=== PATIENT | male | born 2000 | race Caucasian/White ===

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

== ENCOUNTER 2019-05-05 02:55 | Emergency (ER) | payer MEDICAID, SELFPAY ==
[2019-05-05 02:55] VITALS: BP 135/82; PULSE 96; RESP 18; TEMP 36.6; O2SAT 98; BMI 40.4
--- NOTE | 2019-05-05 03:04 | RAD_ITS ---
STUDY: X-RAY CHEST REASON FOR EXAM: Male, 19 years old. STATES HE STARTED TO HAVE LBP WITH NO INJURY THEN BECAME SOB -- HX OF ASTHMA TECHNIQUE: PA and lateral views of the chest. COMPARISON: 10/23/2018. FINDINGS: The lungs are clear and expanded. There is no demonstrated pleural abnormality. Normal size heart. Normal mediastinum and henrique. Normal visualized pulmonary arteries. Normal visualized aortic arch and descending thoracic aorta. Normal visualized thoracic spine. Normal visualized ribs, clavicles, and shoulders. There is no demonstrated abnormality of the visualized soft tissue structures of the upper abdomen. RAD/Chest PA and Lateral IMPRESSION: Normal x-ray examination of the chest. Electronically Signed: Carrie Regalado MD at 4:04 EST , Service support ,
--- NOTE | 2019-05-05 03:05 | ED.VIS.GEN ---
History of Present Illness Chief Complaint: Back Detail of Chief Complaint: Back pain and shortness of breath Informant: Patient Onset: Yesterday Current Severity: Mild Maximum Severity: Mild Narrative: Patient presents early in the morning for evaluation of back pain followed by shortness of breath. He states he was at work last night around 10 PM when he started getting pain across his lower back. He does report that he stands on his feet a lot and does lifting and twisting. He does not remember specific injury. Pain does not radiate down his legs. He states shortly after he noted the back pain he started to feel slightly short of breath. He has had slight recent congestion with chills. He denies any chest or upper back pain. - Past Medical History (1) Asthma Status: Chronic (2) ADHD Status: Chronic Past Medical History - Allergies and Home Meds Allergies/Adverse Reactions: Allergies No Known Allergies Allergy (Verified 05/05/19 02:59) Primary Care Physician: Markus Grewal DO [Primary Care Provider] - Prior records reviewed: Yes Smoking Status: Never smoker Review of Systems General: Reports: Chills. Denies: Fever Eyes: Denies: Visual changes - bilaterally ENT: Denies: Bilateral ear pain, Rhinorrhea, Sore throat Cardiovascular: Denies: Chest pain, Palpitations Respiratory: Reports: Dyspnea. Denies: Cough, Sputum Gastrointestinal: Denies: Abdominal pain, Nausea, Vomiting, Diarrhea Musculoskeletal: Reports: Back pain. Denies: Extremity Pain Skin: Denies: Rash Neurological: Denies: Headache, Parasthesia Allergy: Denies: Uticaria Physical Exam Vital Signs/Narrative: Vital Signs Temp Pulse Resp BP Pulse Ox 05/05/19 02:55 97.8 F 96 18 135/82 H 98 Inital Vital Signs reviewed: Yes General: Well nourished, Well developed Head: Normocephalic ENT: Moist mucous membranes Cardiovascular: Regular rate, Regular rhythm Respiratory: No distress, CTA bilaterally Abdomen: Soft, Nontender, Nondistended Back: - - Reproducible tenderness in the lumbar region, both midline and paraspinal muscles. Patient moves to the upright position without any difficulty. Extremities: Nontender Skin: Normal color Neurological: Alert, Oriented x3, Normal Strength, Normal Sensation Psychological: Normal affect Diagnostic/Tx/Re-eval Chest X-Ray - ED: 2 View, Read by ED Physician, Normal, Heart, Lungs, Mediastinum - Medical Decision Making Patient was treated with naproxen for pain. 2 view chest x-ray is unremarkable. Patient's O2 sats are normal and he has no chest or upper back pain. Patient's lower back pain is reproducible and I believe this is muscular nature. He will be given a prescription for naproxen. ED Disposition - Plan for ED Patient: Disposition: Home or Assisted Living Diagnosis: Dyspnea, Musculoskeletal back pain Instructions: BACK PAIN (Acute or Chronic) Prescriptions: Naproxen [Naprosyn] 500 mg PO BID PRN PRN #20 tab PRN Reason: Pain Score 4-10/10 Transmission Status: Pending to [facility] Referrals: Markus Grewal DO [Primary Care Provider] - 1 Week if not improving
[2019-05-05] MEDS: Naproxen 500 MG Tablet PO (03:07)
[2019-05-05 03:27] VITALS: BP 120/82; PULSE 69; RESP 18; O2SAT 96
== END 2019-05-05 03:28 | disposition home or self-care (01) ==
PROVIDERS: Emergency Provider Emergency Medicine; PCP Family Medicine
DX: M54.5 Low back pain (principal); R06.00 Dyspnea, unspecified; J45.909 Unspecified asthma, uncomplicated; F90.9 Attention-deficit hyperactivity disorder, unspecified type
CPT/HCPCS: 71046; 99283

== ENCOUNTER 2021-12-24 08:53 | Emergency (ER) | payer MEDICAID, SELFPAY ==
[2021-12-24 08:54] VITALS: BP 128/89; PULSE 85; RESP 14; TEMP 36.6; O2SAT 97; BMI 40.6
--- NOTE | 2021-12-24 09:14 | ED.VIS.GI ---
HPI HPI - GI History of Present Illness Chief Complaint: Abd Pain Narrative Narrative: 21-year-old male presenting with right lower quadrant pain. He states that sharp in nature. At times it is very severe and is a 10. Currently is a 7. He has had the pain in the right lower quadrant all week. Patient states that he had diarrhea about a week ago which persisted until yesterday and now he feels constipated. Patient has not had a fever, but does state he has had chills. He does not have any urinary complaints. He has no history of kidney stones. He does states he has some baseline nausea which is worse with the pain episodes. He states he is able to eat but after he eats he does not feel so well. He has not vomited he states that he was seen at urgent care on and they told him to follow-up with his PCP. They tested him for nothing and he received no medications from them. Patient was told that if his pain persists or is worse he should come to the emergency room. PFSH PFSH Medical History no medical history Home Medications naproxen 500 mg tablet 500 mg PO BID PRN PRN Pain Score 4-10/10 #20 tabs 05/05/19 [Rx Last Taken Unknown] paroxetine HCl 20 mg tablet 20 mg PO DAILY 05/05/19 [History Last Taken Unknown] naproxen 500 mg tablet (Naprosyn) 500 mg PO BID PRN pain #20 tabs 12/24/21 [Rx Last Taken Unknown] ondansetron 4 mg disintegrating tablet 4 mg PO Q8H PRN nausea and vomiting #10 tabs 12/24/21 [Rx Last Taken Unknown] Allergy/AdvReac Type Severity Reaction Status Date / Time No Known Allergies Allergy Verified 12/24/21 08:58 Social History Smoking Status: Never smoker ROS ROS ED Constitutional Constitutional ED: Reports chills; Denies fever(s) ENT ENT ED: Denies rhinorrhea or sore throat Cardiovascular Cardiovascular: Denies chest pain or palpitations Respiratory/Chest Respiratory/Chest: Denies cough or dyspnea Gastrointestinal Gastrointestinal: Reports abdominal pain and nausea Genitourinary Genitourinary ED: Denies dysuria or hematuria Musculoskeletal Musculoskeletal: Denies arthralgias or back pain Integumentary Denies abscess Neurologic Neurologic: Denies headache(s) or paresthesias Psychiatric Psychiatric: Denies anxiety or depression Endocrine Endocrinology: Denies polydipsia or polyphagia EXAM Physical Exam Const Vital Signs: 12/24/21 08:54 12/24/21 11:22 Temperature 97.8 F Temperature Source Temporal Pulse Rate 85 72 Respiratory Rate 14 16 Blood Pressure 128/89 H 118/92 H Blood Pressure Mean 102 100 Pulse Ox 97 98 Oxygen Delivery Method Room Air Room Air Positive well nourished General Appearance ED: NAD; Negative for pallor HEENT Reports moist mucous membranes normocephalic and atraumatic Eyes PERRL and EOMs intact bilaterally Resp normal respiratory effort and clear to auscultation bilaterally Auscultation: Negative for rales, rhonchi or wheezes Cardio regular rate and regular rhythm GI Palpation: tender RLQ Back/Spine no CVA tenderness Neuro CN's II-XII intact bilaterally Sensorium / Orientation: alert Motor Exam: strength 5/5 throughout Psych mental status grossly normal and thought process normal Skin no wounds General Skin Exam: Negative for jaundice or pallor MDM MDM MDM Narrative Medical decision making narrative: Patient presenting with right lower quadrant pain. He was given Toradol and Zofran and improved his pain significantly. He states that his pain has been ongoing for about a week. He has had some intermittent nausea with this as well. His CBC and CMP are within normal limits. Urinalysis negative for infection but does show a small amount of occult blood. There was a slight delay in care because the patient could not urinate for at least [address] scan of the abdomen pelvis without contrast shows gastroenteritis versus mesenteric adenitis but does not show any appendicitis. Unfortunately the appendix is not visualized on this study, however the patient has had this pain for a week and he has normal lab work I have a low suspicion that this is appendicitis. I did addictions counselor assistant the patient if his pain should worsen or he develop worsening symptoms otherwise he should return to the ER. Otherwise I gave prescription for Naprosyn and Zofran for home. Impression: 1. Mesenteric adenitis 2. Nausea Lab Data Attestation: I reviewed the patient's lab results. Labs: Laboratory Results - last 24 hr 12/24/21 12/24/21 12/24/21 09:20 09:20 12:05 WBC 9.1 RBC 5.36 Hgb 15.0 Hct 45.8 MCV 85.4 MCH 28.0 MCHC 32.8 RDW Std Deviation 39.4 RDW Coeff of Willie 12.7 Plt Count 244 MPV 11.2 Immature Gran % (Auto) 0.200 Neut % (Auto) 67.8 Lymph % (Auto) 21.0 Kings % (Auto) 7.1 Eos % (Auto) 3.4 Baso % (Auto) 0.5 Absolute Neuts (auto) 6.2 Absolute Lymphs (auto) 1.91 Nucleated RBC % 0 Sodium 140 Potassium 4.1 Chloride 108 H Carbon Dioxide 26.0 Anion Gap 6 BUN 17 Creatinine 0.95 Estim Creat Clear Calc 133.87 Est GFR (MDRD) Af Amer 127 Est GFR (MDRD) Non-Af 105 BUN/Creatinine Ratio 17.9 Glucose 96 Calcium 9.2 Total Bilirubin 0.50 AST 27 ALT 57 Alkaline Phosphatase 82 Total Protein 7.6 Albumin 4.0 Globulin 3.6 Albumin/Globulin Ratio 1.1 Urine Color Yellow Urine Clarity Sl. Cloudy Urine pH 6.0 Ur Specific [place] 1.020 Urine Protein 30 H Urine Glucose (UA) Normal Urine Ketones Negative Urine Occult Blood 10 H Urine Nitrite Negative Urine Bilirubin Negative Urine Urobilinogen Normal Ur Leukocyte Esterase 25 H Urine RBC 0 SEEN Urine WBC 0-5 SEEN Ur Squamous Epith Cells 0-5 SEEN Urine Bacteria 0 SEEN Urine Mucus 0 SEEN Radiography Diagnostic Testing: Clinical Impression(s) from Imaging Studies Abdomen/Pelvis CT 12/24/21 12:17 IMPRESSION: 1. No renal or ureteral stone. 2. Suspect gastroenteritis or mesenteric adenitis. The appendix is not visualized. 3. Fatty infiltration liver. Electronically Signed: Babatunde Dowd MD at 13:09 EDT , Discharge Plan Triage Chief Complaint: Abd Pain ED Provider: Hossein Hartman Dx/Rx/DC Orders Instructions: ED Adenitis, Mesenteric Prescriptions: New naproxen [Naprosyn] 500 mg tablet 500 mg PO BID PRN (Reason: pain) Qty: 20 0RF ondansetron 4 mg tablet,disintegrating 4 mg PO Q8H PRN (Reason: nausea and vomiting) Qty: 10 0RF No Action paroxetine HCl 20 MG tablet 20 mg PO DAILY Label Comments: take 1 tablet by mouth once daily naproxen 500 MG tablet 500 mg PO BID PRN PRN (Reason: Pain Score 4-10/10) Qty: 20 0RF Primary Care Provider: Markus Grewal Referrals: Markus Grewal DO [Primary Care Provider] - Disposition Disposition: Home, Self Care
[2021-12-24 09:31] LABS: Absolute Lymphocyte Count 1.91 X10^3/uL (0.83-4.51); Absolute Neutrophil Count 6.2 X10^3/uL (2.0-7.7); Basophil# 0.05 X10^3/uL; Basophil% 0.5 % (0-1); Eosinophil# 0.31 X10^3/uL; Eosinophils% 3.4 % (0-5); Hematocrit 45.8 % (40-54); Lymphocyte # 1.91 X10^3/ul (0.83-4.51); Mean Corp Hgb Conc 32.8 g/dL (32-36); Mean Corpuscular Volume 85.4 fL (80-94); Mean Platelet Vol. 11.2 fl (6.2-12.0); Monocyte# 0.65 X10^3/uL; Monocyte% 7.1 % (0-10); NRBC Flagged by Analyzer 0 % (0-5); Neutrophil # 6.16 X10^3/uL (2.7-7.7); Neutrophil % 67.8 % (47-70); Platelet Count 244 K/mm3 (150-450); RBC Distribution Width CV 12.7 % (11.6-14.6); RBC Distribution Width SD 39.4 fl (35.1-43.9); Red Blood Count 5.36 M/mm3 (4.6-6.2); White Blood Count 9.1 K/mm3 (4.4-11.0)
[2021-12-24] MEDS: 0.9% Normal Saline 1,000 ML 1000 ML IV (09:35)
[2021-12-24] MEDS: Ondansetron 4 MG/2 ML Vial IV (09:35)
[2021-12-24] MEDS: Ketorolac 15 MG/ML Vial IV (09:35)
[2021-12-24 09:44] LABS: ALB/GLOB Ratio 1.1 RATIO (0.9-2.4); AST(SGOT) 27 U/L (15-37); Alanine Aminotransfer ALT/SGPT 57 U/L (16-61); Alkaline Phosphatase 82 U/L (45-117); Anion Gap 6 (5-15); BUN 17 mg/dL (7-18); BUN/Creat Ratio 17.9 RATIO (10-20); Calcium,Total 9.2 mg/dL (8.5-10.1); Chloride 108 mmol/L (98-107); Creatinine, Serum 0.95 mg/dL (0.70-1.30); EST Glomerular Filtration Rate 105 mL/min (>60); Est Glom Filt Rate - Afr Amer 127 mL/min (>60); Estimated Creatinine Clearance 133.87 ml/min; Globulin 3.6 g/dL (2.2-4.2); Glucose 96 mg/dL (74-106); Potassium 4.1 mmol/L (3.5-5.1); Protein, Total 7.6 g/dL (6.4-8.2); Sodium Level 140 mmol/L (136-145)
[2021-12-24 11:22] VITALS: BP 118/92; PULSE 72; RESP 16; O2SAT 98
[2021-12-24 12:12] LABS: Bacteria 0 SEEN /hpf (None Seen); Mucous, Urine 0 SEEN /hpf (<or=2+); Red Blood Cells-Urine 0 SEEN /hpf (0-5)
[2021-12-24 12:13] LABS: Color, Urine Yellow (Yellow); Glucose, Dipstick Normal (Normal); Ketone-Dipstick Negative (Negative); Leukocyte Esterase-Dipstick 25 /ul (Negative); Nitrite-Dipstick Negative (Negative); Occult Blood-Urine 10 /ul (Negative); Protein-Dipstick 30 mg/dl (Negative); Urine Bilirubin Dipstick Negative (Negative); Urine Clarity Sl. Cloudy (Clear); Urine Urobilinogen Normal (Normal)
--- NOTE | 2021-12-24 12:17 | CT_ITS ---
STUDY: CT ABDOMEN AND PELVIS WITHOUT CONTRAST REASON FOR EXAM: Male, 21 years old. kidney stone RADIATION DOSAGE (If Supplied By Facility): CTDIvol = ( 23.71 ) mGy, DLP = ( 1374.17 ) mGycm TECHNIQUE: Transaxial images were obtained from the dome of the diaphragm to the symphysis pubis without oral contrast, and without intravenous contrast. Sagittal and coronal images were reconstructed. Individualized dose optimization techniques were used for this CT. COMPARISON: None. FINDINGS: The visualized lung bases are unremarkable. The visualized portions of the heart are within normal limits. There is decreased attenuation of the liver consistent with steatosis. Normal gallbladder and extrahepatic biliary system. Normal spleen. Normal pancreas. Normal bilateral adrenal glands. Normal right kidney. Normal left kidney. Normal visualized stomach. Normal small intestine. Several small lymph nodes within the small bowel mesentery in the left upper quadrant consistent with gastroenteritis or mesenteric adenitis. Normal colon. There is non-visualization of the appendix. Normal abdominal aorta. Normal inferior vena cava. Normal retroperitoneum. Normal urinary bladder. Normal abdominal wall. Mild levoscoliosis of the lumbar spine. 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 No anterolisthesis of L5 on S1 to suggest spondylolisthesis. CT/Abdomen/Pelvis without Cont IMPRESSION: 1. No renal or ureteral stone. 2. Suspect gastroenteritis or mesenteric adenitis. The appendix is not visualized. 3. Fatty infiltration liver. Electronically Signed: Babatunde Dowd MD at 13:09 EDT ,
[2021-12-24 12:26] LABS: Squamous Epithelial Cells - UA 0-5 SEEN /hpf (0-5); White Blood Cells 0-5 SEEN /hpf (0-5)
[2021-12-24 13:00] VITALS: RESP 18
== END 2021-12-24 14:12 | disposition home or self-care (01) ==
PROVIDERS: Emergency Provider Student in an Organized Health Care Education/Training Program; PCP Family Medicine; Visit Provider Student in an Organized Health Care Education/Training Program
DX: I88.0 Nonspecific mesenteric lymphadenitis (principal); R11.0 Nausea; R10.31 Right lower quadrant pain; Z20.822 Contact with and (suspected) exposure to COVID-19
CPT/HCPCS: 74176; 80053; 81001; 85025; 87811; 96361; 96374; 96375; 99282; J7030; A4216; J2405

== ENCOUNTER 2022-07-14 07:30 | Emergency (ER) | payer MEDICAID, SELFPAY ==
[2022-07-14 07:31] VITALS: BP 154/98; PULSE 86; RESP 16; TEMP 36.2; O2SAT 97; BMI 43.3
--- NOTE | 2022-07-14 07:46 | ED.VIS.DENTA ---
HPI History of Present Illness Chief Complaint: Dental Informant: patient Onset/Context/Timing Onset: Month(s) Narrative Narrative: Intermittent right lower dental pain for the past 3 months. Saw his dentist had a filling placed. However feels similar when he needed a root canal on the left side. Talk to his dentist a week ago could not get in therefore prescribed amoxicillin and Tylenol 3. He finished amoxicillin 3 days ago pain persistent now for the last day and a half. No fevers. Having chills. No trouble swallowing. His dentist is available on and Fridays. Prior similar symptoms: Yes PFSH PFSH Home Medications naproxen 500 mg tablet 500 mg PO BID PRN PRN Pain Score 4-10/10 #20 tabs 05/05/19 [Rx Last Taken Unknown] paroxetine HCl 20 mg tablet 20 mg PO DAILY 05/05/19 [History Last Taken Unknown] naproxen 500 mg tablet (Naprosyn) 500 mg PO BID PRN pain #20 tabs 12/24/21 [Rx Last Taken Unknown] ondansetron 4 mg disintegrating tablet 4 mg PO Q8H PRN nausea and vomiting #10 tabs 12/24/21 [Rx Last Taken Unknown] ibuprofen 600 mg tablet 600 mg PO Q6H PRN PRN pain #20 TABLETS 07/14/22 [Rx Last Taken Unknown] penicillin V potassium 250 mg tablet 500 mg PO 4X/DAY #40 tabs 07/14/22 [Rx Last Taken Unknown] Allergy/AdvReac Type Severity Reaction Status Date / Time No Known Allergies Allergy Verified 07/14/22 07:33 Social History Smoking Status: Never smoker ROS ROS ED Constitutional Constitutional ED: Denies chills, fever(s) or sweats Eyes Eyes: Denies change in vision ENT ENT ED: Reports other Details: Dental pain ; Denies dysphagia or sore throat Cardiovascular Cardiovascular: Denies chest pain, leg edema, palpitations or racing heartbeat Respiratory/Chest Respiratory/Chest: Denies cough, dyspnea or dyspnea on exertion Gastrointestinal Gastrointestinal: Denies abdominal pain, diarrhea, nausea or vomiting Genitourinary Genitourinary ED: Denies dysuria, hematuria or urinary frequency Musculoskeletal Musculoskeletal: Denies back pain, extremity pain or neck pain Integumentary Denies rash or wounds Neurologic Neurologic: Denies headache(s), paresthesias or weakness EXAM Physical Exam Const Vital Signs: 07/14/22 07:31 Temperature 97.2 F L Temperature Source Temporal Pulse Rate 86 Respiratory Rate 16 Blood Pressure 154/98 H Blood Pressure Mean 116 Pulse Ox 97 Oxygen Delivery Method Room Air Positive well nourished and well developed General Appearance ED: well developed and NAD HEENT Reports moist mucous membranes HEENT Narrative: Dental fillings on tooth 31, there is no focal abscess in the gums or sublingual edema. No fluctuance. No tenderness to percussion. Airway patent. normocephalic and atraumatic Eyes PERRL, EOMs intact bilaterally and conjunctivae normal General Eye ED: Yes normal appearance of both eyes Neck no lymphadenopathy and supple General: Negative for tenderness Chest Wall Chest: Negative for tenderness Resp normal respiratory effort and normal air movement Effort and Inspection: symmetric chest movement; Negative for respiratory distress Cardio regular rate, regular rhythm and no murmurs Peripheral Pulses: pulses 2+ throughout GI normal to inspection, nondistended, normoactive bowel sounds and non-tender Palpation: Negative for guarding or rebound tenderness present Back/Spine no CVA tenderness and no thoracic nor lumbar tenderness Extremity normal to inspection General Extremety ED: Negative for edema or tenderness General Extremity: Negative for edema Neuro oriented x3 and no sensory deficits noted Sensorium / Orientation: awake and alert Skin no rashes or lesions noted and no wounds MDM MDM MDM Narrative Medical decision making narrative: Interventions / MDM: Differential diagnosis: Dentalgia, dental carry Diagnosis considered but do not suspect: No clinical dental abscess, no clinical Bigg's angina My EKG interpretation: N/A Imaging independently reviewed and interpreted by myself: N/A External documents reviewed: N/A Test considered but not ordered:N/A ED course: Patient with dentalgia, penicillin ibuprofen started. He will follow-up with his dentist for definitive treatment. All questions were answered. Re-evaluation: stable Disposition discussed with patient/family/significant other: Patient Case discussed with consulting clinician: N/A Discharge Plan Triage Chief Complaint: Dental ED Provider: Durga Willingham Dx/Rx/DC Orders Clinical Impression: Dentalgia Instructions: ED Dental Pain Prescriptions: New ibuprofen 600 mg tablet 600 mg PO Q6H PRN PRN (Reason: pain) Qty: 20 0RF penicillin V potassium 250 mg tablet 500 mg PO 4X/DAY Qty: 40 0RF No Action paroxetine HCl 20 MG tablet 20 mg PO DAILY Label Comments: take 1 tablet by mouth once daily naproxen 500 MG tablet 500 mg PO BID PRN PRN (Reason: Pain Score 4-10/10) Qty: 20 0RF naproxen [Naprosyn] 500 mg tablet 500 mg PO BID PRN (Reason: pain) Qty: 20 0RF ondansetron 4 mg tablet,disintegrating 4 mg PO Q8H PRN (Reason: nausea and vomiting) Qty: 10 0RF Primary Care Provider: Care Physician,No Primary Activity Restrictions/Additional Instructions: Follow-up with your dentist for definitive treatment. Take antibiotic as prescribed. Disposition Disposition: Home, Self Care
[2022-07-14] MEDS: Ibuprofen 600 MG Tablet PO (07:49)
[2022-07-14] MEDS: Penicillin Vk 250 MG Tablet 500 MG PO (07:50)
== END 2022-07-14 07:53 | disposition home or self-care (01) ==
LOC: ED 07:46
PROVIDERS: Emergency Provider Emergency Medicine; Visit Provider Emergency Medicine
DX: K08.89 Other specified disorders of teeth and supporting structures (principal); R68.83 Chills (without fever)
CPT/HCPCS: 99283

== ENCOUNTER 2024-12-26 12:28 | Emergency (ER) | payer MEDICAID, SELFPAY ==
[2024-12-26 12:30] VITALS: BP 129/94; PULSE 67; RESP 18; TEMP 35.9; O2SAT 99; BMI 41.6
--- OUTSIDE RECORDS SUMMARY | 2024-12-26 12:46 | XMS RPT_ITS | CCD ---
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 childhood series) Varicella (1 of 2 - 2-dose childhood series) [facility] Start: 1999 COVID-19 (#1) COVID-19 (#1) [facility] Start: 1999 COVID-19 VACCINE (#1) COVID-19 VACCINE (#1) [facility] Start: 1999 HEPATITIS B (1 of 3 - 3-dose series) HEPATITIS B (1 of 3 - 3-dose series) [facility] Genetic Sendout: 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 Lab Routine Genetic testing 11/28/2022 4:35 PM EDT [facility] Work Phone: Patient Education [facility] Work Phone: Patient referral [facility] Work Phone: Immunizations Immunization Date Immunization Notes Care Provider Wendy gordon 02-18-2020 influenza virus vacc ine, unspecified formulation Courtney Graham APRN.CNP Work Phone: [facility] Payers Date Payer Category Payer Self-pay [id number] 2022 Unknown [id number] 2019 Medicaid [id number] Unknown [id number] Unknown [id number] Unknown [id number] Social History Date Type Detail Facility Start: 12-24-2021 End: 07-14-2022 Tobacco smoking status PRIS Unknown if ever smoked [facility] Start: 05-05-2019 Non-smoker [facility] Start: 1999 Sex Assigned At Male [facility] Start: 12-22-2021 End: 07-14-2022 Tobacco smoking status PRIS Never smoked tobacco [facility] Start: 12-22-2021 Tobacco use and exposure Smokeless tobacco non-user [facility] Start: 12-22-2021 End: 03-27-2024 Alcohol intake Lifetime non-drinker (finding) [facility] Start: 2000 Sex Assigned At Not on file [facility] Start: 12-12-2021 End: 12-22-2021 Exposure to SARS-CoV-2 (event) Not sure [facility] Work Phone: Start: 03-17-2020 End: 03-27-2024 Gender identity Not on file [facility] Start: 03-17-2020 End: 03-27-2024 History of Social function [facility] National Score (1-100), lower number is lower risk Not on file [facility] Clinical Notes 12-22-2021 to 10-08-2024 Note Date & Type Note Facility 10-08-2024 Progress note [facility] 10-08-2024 Progress note Note Date/Time October 08, 2024 11:39am [facility] [address], [address] [place], [place] [address] OFFICE VISIT Date of Service: 10/08/24 MR#: [id number] Acct: [id number] Name: BHAVYA MOORE Rep #: [id number] : 2000 Provider: ASHLY Mari Age/Sex: 24/M Location: [facility] Status: Signed Intake Vital Signs 07/14/22 07:31 Height 6 ft Intake Visit Reasons: PE NON DOT PHYSICAL/ YANET BRUSH Allergies No Known Allergies Allergy (Verified 07/14/22 07:33) PFSH Social History Smoking Status: Never smoker HPI HPI Details: BHAVYA MOORE, is a 24 M who presents to the office today for preemployment physical. Please see corresponding scanned documents with today's date. Office Procedures Physical Exam Coding PE Coding Pre-employment PE: Yes Coding Level of Care Code Attention Emergency Care Attendant Diagnoses Encounter for pre-employment health screening examination Z02.1 Assessment and Plan Assessment and Plan (1) Encounter for pre-employment health screening examination: Status: Acute 10/08/24 1139 <Electronically signed by Sumit LIMON> Date _ Sumit LIMON Cosigner Signature: Date (if applicable) CC: ~ [employer] Work Phone: [phone]) 976-286212-20-2024 NoteHNO ID: [id number] Author: COURTNEY GRAHAM APRN.CLINICAL RESEARCH SPECIALIST Service: ? Author Type: Nurse Practitioner Type: Progress Notes Filed: 03/27/2024 11:44 Note Text: CC: Patient presents with: Sore Throat: X 1 day All kids are + HPI: Bhavya Moore is a 23 year old male who presents to the office with complaint of sore throat since last night. Symptoms are staying the same. Associated symptoms includes sore throat. Denies cough, teeth ache, wheezing, dyspnea, nausea, vomiting , and diarrhea. Treatments tried include nothing so far. with no relief of symptoms. Sick contacts: yes. History of asthma, frequent episodes of bronchitis, chronic bronchitis, bronchiectasis or COPD: No Smoker: No Seasonal/environmental allergies: No The ROS is otherwise negative. The patient's pmh, medications, allergies, and past visits are reviewed. PHYSICAL EXAM: BP 121/80 Pulse (!) 59 Temp 36.4 ?C (97.6 ?F) Resp 22 Wt (!) 149 kg (328 lb 7.8 oz) SpO2 97% General appearance: alert, cooperative, pleasant, in no acute distress Head: Normocephalic Eyes: EOM's intact, conjunctiva pink and moist, no icterus, sclera white, non-injected Ears: Right ear: External ear/canal- Normal, TM - clear with good landmarks. Left ear: External ear/canal- Normal, TM - clear with good landmarks Oropharynx:moderate erythema, without exudates present Heart: Negative. RRR without obvious murmur, gallop, or rubs. No ectopy. Lungs: clear to auscultation, without rales or wheeze, good air exchange PAST MEDICAL HISTORY Diagnosis Date Anxiety PAST SURGICAL HISTORY Procedure Laterality Date PAST SURGICAL HISTORY OF 1999 ?pyloric stenosis procedure ALLERGIES Patient has no known allergies. MEDICATIONS No prescriptions on file. No family history on file. Social History Tobacco Use Smoking status: Never Smokeless tobacco: Never Vaping Use Vaping status: Never Used Substance Use Topics Alcohol use: Never Drug use: Never ASSESSMENT/PLAN: 1. Sore throat - ICD9: 462, ICD10: J02.9 - STREP A MOLECULAR (POC) - neg Otc meds for viral symptoms. Potential red flag symptoms discussed with the patient. Reviewed appropriate action plan to take if red flag symptoms occur. Patient agreeable to treatment plan. Courtney Graham APRN.[facility]12-20-2024 History of Present illness Narrative* Courtney Graham APRN.[facility] - 03/27/2024 11:43 AM EST CC: Patient presents with: Sore Throat: X 1 day All kids are + HPI: Bhavya Moore is a 23 year old male who presents to the office with complaint of sore throat since last night. Symptoms are staying the same. Associated symptoms includes sore throat. Denies cough, teeth ache, wheezing, dyspnea, nausea, vomiting , and diarrhea. Treatments tried include nothing so far. with no relief of symptoms. Sick contacts: yes. History of asthma, frequent episodes of bronchitis, chronic bronchitis, bronchiectasis or COPD: No Smoker: No Seasonal/environmental allergies: No The ROS is otherwise negative. The patient's pmh, medications, allergies, and past visits are reviewed. PHYSICAL EXAM: BP 121/80 Pulse (!) 59 Temp 36.4 C (97.6 F) Resp 22 Wt (!) 149 kg (328 lb 7.8 oz) SpO2 97% General appearance: alert, cooperative, pleasant, in no acute distress Head: Normocephalic Eyes: EOM's intact, conjunctiva pink and moist, no icterus, sclera white, non-injected Ears: Right ear: External ear/canal- Normal, TM - clear with good landmarks. Left ear: External ear/canal- Normal, TM - clear with good landmarks Oropharynx:moderate erythema, without exudates present Heart: Negative. RRR without obvious murmur, gallop, or rubs. No ectopy. Lungs: clear to auscultation, without rales or wheeze, good air exchange PAST MEDICAL HISTORY Diagnosis Date Anxiety PAST SURGICAL HISTORY Procedure Laterality Date PAST SURGICAL HISTORY OF 1999 ?pyloric stenosis procedure ALLERGIES Patient has no known allergies. MEDICATIONS No prescriptions on file. No family history on file. Social History Tobacco Use Smoking status: Never Smokeless tobacco: Never Vaping Use Vaping status: Never Used Substance Use Topics Alcohol use: Never Drug use: Never ASSESSMENT/PLAN: 1. Sore throat - ICD9: 462, ICD10: J02.9 - STREP A MOLECULAR (POC) - neg Otc meds for viral symptoms. Potential red flag symptoms discussed with the patient. Reviewed appropriate action plan to take if red flag symptoms occur. Patient agreeable to treatment plan. Courtney Graham APRN.POP [facility] History of Present illness Narrative* Isauro Gale APRN.POP - 12/22/2021 9:05 AM EDT Subjective HPI Nontoxic-appearing male presents urgent care chief complaint transient abdominal pain. Duration of symptoms a month and a half. Associated symptoms transient abdominal pain. States this morning he has had more right lower quadrant abdominal pain. Rates it 7 out of 10. This is associated with diarrhea. No bloody diarrhea. Approximately 5-6 loose stools today. No known sick contacts. Denies any OTCmedication use today. Has been using Tylenol the past this has helped. Denies any fever body aches chills productive cough chest pain shortness of breath or change in urinary habits. Past medical history prescription medication use allergies reviewed. 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 No other abdominal surgeries. .Patient presents with: Pain: Pt reported intermittent, sharp abdominal pain rated 7, x1.5 mths, diarrhea. PAST MEDICAL HISTORY Diagnosis Date Anxiety PAST SURGICAL HISTORY Procedure Laterality Date PAST SURGICAL HISTORY OF 1999 ?pyloric stenosis procedure ALLERGIES Patient has no known allergies. MEDICATIONS acetaminophen (TYLENOL) 325 mg cap Take by mouth. PARoxetine (PAXIL) 20 mg tablet Take 1 tablet by mouth once daily. (Patient not taking: Reported on12/22/2021) No family history on file. Social History Tobacco Use Smoking status: Never Smokeless tobacco: Never Vaping Use Vaping Use: Never used Substance Use Topics Alcohol use: Never Drug use: Never BP 128/66 Pulse 89 Temp 36.7 C (98 F) Resp 16 Wt (!) 143.8 kg (317 lb) SpO2 97% Review of Systems Constitutional: Negative for chills, fever and malaise/fatigue. HENT: Negative for congestion, ear discharge, ear pain, sinus pain and sore throat. Eyes: Negative for blurred vision, pain, discharge and redness. Respiratory: Negative for cough, hemoptysis, sputum production, shortness of breath, wheezing and stridor. Cardiovascular: Negative for chest pain. Gastrointestinal: Positive for abdominal pain and diarrhea. Negative for nausea and vomiting. Genitourinary: Negative. Musculoskeletal: Negative for myalgias. Skin: Negative for itching and rash. Neurological: Negative for dizziness and headaches. Objective Physical Exam Constitutional: General: He is not in acute distress. Appearance: He is not diaphoretic. HENT: Head: Normocephalic. Mouth/Throat: Mouth: Mucous membranes are moist. Pharynx: Oropharynx is clear. No oropharyngeal exudate or posterior oropharyngeal erythema. Eyes: Conjunctiva/sclera: Conjunctivae normal. Pupils: Pupils are equal, round, and reactive to light. Cardiovascular: Rate and Rhythm: Normal rate and regular rhythm. Heart sounds: Normal heart sounds. Pulmonary: Effort: Pulmonary effort is normal. No tachypnea, accessory muscle usage or respiratory distress. Breath sounds: Normal breath sounds. No stridor. Abdominal: General: Bowel sounds are normal. There is no distension. Palpations: Abdomen is soft. Tenderness: There is abdominal tenderness. There is no guarding or rebound. Musculoskeletal: Cervical back: Normal range of motion and neck supple. No rigidity or tenderness. Lymphadenopathy: Cervical: No cervical adenopathy. Skin: General: Skin is warm and dry. Neurological: Mental Status: He is alert and oriented to person, place, and time. ASSESSMENT/PLAN: 1. Right lower quadrant abdominal pain - ICD9: 789.03, ICD10: R10.31 Patient diagnosed with right lower abdominal pain. Supportive therapies discussed. Will contact PCPoffice for reevaluation today. If unable to be seen in PCP office will be seen in ED. Patient verbalized understand agrees with plan of care. Isauro Gale APRN.POP documented in this encounterSum[facility] CenterDis[facility] summary Author Dr. Willingham [facility] July 14, 2022 7:50am Note Date/Time July 14, 2022 7:50 am [facility] Medical Records Department [address] [place] [id number] Emergency Department Summary 07/14/22 MR#: [id number] Acct: [id number] Name: BHAVYA MOORE Rep #:[id number] : 2000 22 From: Durga Clark PCP: Care Physician,No Primary Status :REG ER Location: ED HPI History of Present Illness Chief Complaint: Dental Informant: patient Onset/Context/Timing Onset: Month(s) Narrative Narrative: Intermittent right lower dental pain for the past 3 months. Saw his dentist hada filling placed. However feels similar when he needed a root canal on the leftside. Talk to his dentist a week ago could not get in therefore prescribed amoxicillin and Tylenol 3. He finished amoxicillin 3 days ago pain persistent now for the last day and a half. No fevers. Having chills. No trouble swallowing. His dentist is available on and Fridays. Prior similar symptoms: Yes PFSH PFSH Home Medications naproxen 500 mg tablet 500 mg PO BID PRN PRN Pain Score 4-10/10 #20 tabs 05/05/19 [Rx Last Taken Unknown] paroxetine HCl 20 mg tablet 20 mg PO DAILY 05/05/19 [History Last Taken Unknown] naproxen 500 mg tablet (Naprosyn) 500 mg PO BID PRN pain #20 tabs 12/24/21 [Rx Last Taken Unknown] ondansetron 4 mg disintegrating tablet 4 mg PO Q8H PRN nausea and vomiting #10 tabs 12/24/21 [Rx Last Taken Unknown] ibuprofen 600 mg tablet 600 mg PO Q6H PRN PRN pain #20 TABLETS 07/14/22 [Rx Last Taken Unknown] penicillin V potassium 250 mg tablet 500 mg PO 4X/DAY #40 tabs 07/14/22 [Rx Last Taken Unknown] Allergy/AdvReac Type Severity Reaction Status Date / Time No Known Allergies Allergy Verified 07/14/22 07:33 Social History Smoking Status: Never smoker ROS ROS ED Constitutional Constitutional ED: Denies chills, fever(s) or sweats Eyes Eyes: Denies change in vision ENT ENT ED: Reports other Details: Dental pain ; Denies dysphagia or sore throat Cardiovascular Cardiovascular: Denies chest pain, leg edema, palpitations or racing heartbeat Respiratory/Chest Respiratory/Chest: Denies cough, dyspnea or dyspnea on exertion Gastrointestinal Gastrointestinal: Denies abdominal pain, diarrhea, nausea or vomiting Genitourinary Genitourinary ED: Denies dysuria, hematuria or urinary frequency Musculoskeletal Musculoskeletal: Denies back pain, extremity pain or neck pain Integumentary Denies rash or wounds Neurologic Neurologic: Denies headache(s), paresthesias or weakness EXAM Physical Exam Const Vital Signs: 07/14/22 07:31 Temperature 97.2 F L Temperature Source Temporal Pulse Rate 86 Respiratory Rate 16 Blood Pressure 154/98 H Blood Pressure Mean 116 Pulse Ox 97 Oxygen Delivery Method Room Air Positive well nourished and well developed General Appearance ED: well developed and NAD HEENT Reports moist mucous membranes HEENT Narrative: Dental fillings on tooth 31, there is no focal abscess in the gums or sublingualedema. No fluctuance. No tenderness to percussion. Airway patent. normocephalic and atraumatic Eyes PERRL, EOMs intact bilaterally and conjunctivae normal General Eye ED: Yes normal appearance of both eyes Neck no lymphadenopathy and supple General: Negative for tenderness Chest Wall Chest: Negative for tenderness Resp normal respiratory effort and normal air movement Effort and Inspection: symmetric chest movement; Negative for respiratory distress Cardio regular rate, regular rhythm and no murmurs Peripheral Pulses: pulses 2+ throughout GI normal to inspection, nondistended, normoactive bowel sounds and non-tender Palpation: Negative for guarding or rebound tenderness present Back/Spine no CVA tenderness and no thoracic nor lumbar tenderness Extremity normal to inspection General Extremety ED: Negative for edema or tenderness General Extremity: Negative for edema Neuro oriented x3 and no sensory deficits noted Sensorium / Orientation: awake and alert Skin no rashes or lesions noted and no wounds MDM MDM MDM Narrative Medical decision making narrative: Interventions / MDM: Differential diagnosis: Dentalgia, dental carry Diagnosis considered but do not suspect: No clinical dental abscess, no clinicalLudwig's angina My EKG interpretation: N/A Imaging independently reviewed and interpreted by myself: N/A External documents reviewed: N/A Test considered but not ordered:N/A ED course: Patient with dentalgia, penicillin ibuprofen started. He will follow- up with his dentist for definitive treatment. All questions were answered. Re-evaluation: stable Disposition discussed with patient/family/significant other: Patient Case discussed with consulting clinician: N/A Discharge Plan Triage Chief Complaint: Dental ED Provider: Durga Willingham Dx/Rx/DC Orders Clinical Impression: Dentalgia Instructions: ED Dental Pain Prescriptions: New ibuprofen 600 mg tablet 600 mg PO Q6H PRN PRN (Reason: pain) Qty: 20 0RF penicillin V potassium 250 mg tablet 500 mg PO 4X/DAY Qty: 40 0RF No Action paroxetine HCl 20 MG tablet 20 mg PO DAILY Label Comments: take 1 tablet by mouth once daily naproxen 500 MG tablet 500 mg PO BID PRN PRN (Reason: Pain Score 4-10/10) Qty: 20 0RF naproxen [Naprosyn] 500 mg tablet 500 mg PO BID PRN (Reason: pain) Qty: 20 0RF ondansetron 4 mg tablet,disintegrating 4 mg PO Q8H PRN (Reason: nausea and vomiting) Qty: 10 0RF Primary Care Provider: Care Physician,No Primary Activity Restrictions/Additional Instructions: Follow-up with your dentist for definitive treatment. Take antibiotic as prescribed. Disposition Disposition: Home, Self Care What to do if you have Problems For any increased pain, shortness of breath, bleeding, nausea or vomiting, chest pain, or any unexpected problems, contact your Primary Care Provider. Call [facility] ([phone]) or report to the closest Emergency Room. Call 911 if necessary. 07/14/22 0750 <Electronically signed by Durga Clark> Cosigner Signature (if applicable): CC: No Primary Care Physician ~ Signed [facility] Work Phone: Evaluation noteNo assessment information available [facility] Work Phone: Evaluation note* Diagnosis Right lower quadrant abdominal pain- Primary Abdominal pain, right lower quadrant [facility] [place]* Diagnosis Genetic testing Other investigation and testing for procreative management [facility] [place] [facility]* Diagnosis Sore throat- Primary Acute pharyngitis documented in this encounter [facility] note* Diagnosis Onset Date Resolution Status Admit Date Encounter for pre-employment health screening examination acute Oct 11:13am [facility] Work Phone: Hospital Discharge instructions Additional Instructions Follow-up with your dentist for definitive treatment. Take antibiotic as prescribed.[facility] Work Phone: Reason for referral (narrative)No reason for referral [facility] Work Phone: Summary Purpose Family History No Family History Records FoundNo Family History Records FoundNo Family History Records FoundNo Family History Records Found Advance Directives No Advanced Directives Records Found Advance Directive Response Recorded Date/ Time Living Will No December 24, 2021 9:04am Power of Retail Sales Clerk No December 9:04am Advance Directive Response Recorded Date/ Time Living Will No July 14, 2022 7:47am Power of Retail Sales Clerk No July 14 7:47am Chief Complaint and Reason for Visit Chief Complaint ABDOMINAL PAIN Chief Complaint PE DRUG SCREEN/DOMET IC dental pain Chief Complaint Admit Date PE NON DOT PHYSICAL/ YANET BRUSH October 08, 2024 11:13am PE NON DOT DRUG & BAT/ YANTE BRUSH [place] y 2024 11:14am Reason for Visit Admit Date Encounter for pre-employment health scre ening examination October 08, 2024 11:13am Additional Source Comments (unrecognized sect ion and content) No Status Records FoundNo Status Records FoundNo Status Records FoundNo Status Records Found INFORMATION SOURCE (unrecogn ized section and content) DATE CREATED AUTHOR 11/27/2020 [facility] ([place]) DATE CREATED AUTHOR AUTHOR'S ORGANIZ ATION 12/04/2022 [facility] DATE CREATED AUTHOR AUTHOR'S ORGANIZ ATION 03/30/2024 [facility] DATE CREATED AUTHOR AUTHOR'S ORGANIZ ATION 10/19/2024 [facility] Goals (unrecognized section and content) Goals may be documented in a n alternate sectionGoals may be documented in an alternate sectionGoals may be documented in an alternate sectionGoals may be documented in an alternate section Source Comments (unrecognize d section and content) In the event this informatio n is protected by the Federal Confidentiality of Alcohol and Drug Abuse Patient Records regulations: The Federal rules restrict any use of the information to criminally investigate or prosecute any alcohol or drug abuse patient.[facility] the event this information is protected by the Federal Confidentiality of Alcohol and Drug Abuse Patient Records regulations: The Federal rules restrict any use of the information to criminally investigate or prosecute any alcohol or drug abuse patient.[facility] Reason for Visit (unrecogniz ed section and content) Reason Comments Pain Pt reported intermit tent, sharp abdominal pain rated 7, x1.5 mths, diarrhea. 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 Dinorah Perez DO Family Provider Active No Primary Care Physician Primary Care Provider Active Team Status: Inactive Member Role Status Dates Dr. Dinorah Perez DO Primary Care Provider, Referrin g Provider Active Maurice LIMON, PA Attending Provider Active Team Status: Inactive Member Role Status Dates Dr. Durga Willingham DO Emergency Provider Active No Primary Care Physician Primary Care Provider Active Cloth Weigher Relationship Specialty Start Date End Date Jeremias Hills MD [place], [place] [id number] Attending Physician Medical Clinical Genetics 11/28/22 Cloth Weigher Relationship Specialty Start Date End Date Dinorah Perez DO [address] [place] [id number] PCP - General Family Medicine 12/22/21 Team Status: Active Member Role/Relationship Status Dates Dr. Dinorah Perez DO Family Provider Active No Primary Care Physician Primary Care Provider Active Team Status: Inactive Member Role/Relationship Status Dates No Primary Care Physician Primary Care Provider Active Start: October 08, 2024 End: October 08, 2024 No Primary Care Physician Referring Provider Active Start: October 08, 2024 End: October 08, 2024 Sumit Kip PA, PA Attending Provider Active Sta rt: October 08, 2024 End: October 08, 2024 Team Status: Inactive Member Role/Relationship Status Dates No Primary Care Physician Primary Care Provider Active Start: October 08, 2024 End: October 08, 2024 No Primary Care Physician Referring Provider Active Start: October 08, 2024 End: October 08, 2024 ASHLY Leija Attending Provider Active Sta rt: October 08, 2024 End: October 08, 2024 FOR RECORDS PERTAINING TO PATIENTS WHO ARE OR HAVE BEEN ENROLLED IN A CHEMICAL DEPENDENCY/SUBSTANCEABUSE PROGRAM, SOME INFORMATION MAY BE OMITTED. This clinical summary was aggregated from multiple sources. Caution should be exercised in using it in the provision of clinical care. This summary normalizes information from multiple sources, and as a consequence, information in this document may materially change the coding, format and clinical context of patient data. In addition, data may be omitted in some cases. CLINICAL DECISIONS SHOULD BE BASED ON THE PRIMARY CLINICAL RECORDS. [facility] [employer] [facility]. provides no warranty or guarantee of the accuracy or completeness of information in this document.
--- NOTE | 2024-12-26 13:17 | EX.ED.UPPERE ---
HPI History of Present Illness HPI Narrative: Patient presents with a left index finger laceration that occurred today. Patient states he was cutting meat when the knife slipped and cut his finger. Patient denies any paresthesias or weakness. Patient describes his pain as sharp. Patient denies any paresthesias or weakness. Patient states nothing makes his pain worse and nothing makes it better. Patient states his last tetanus was between 5 and 10 years ago. Patient denies any other injuries. Chief Complaint: Laceration Informant: patient Occured/Mechanism Comment: Cut with a knife Onset/Context/Timing Onset: Today Context: Sudden Onset Timing: Continuous Quality of Pain: Sharp Location: Left index finger Worsened by: Nothing Relieved by: Nothing Associated Symptoms Associated Symptoms: Negative for Parasthesia, Weakness or Loss of Funtion Narrative Tetanus Immunization: 5-10 years [facility] Medical History no medical history no medical history Home Medications ?Medication ?Instructions ?Recorded ?Last Taken ?Type NK 12/26/24 Unknown History Allergy/AdvReac Type Severity Reaction Status Date / Time No Known Allergies Allergy Verified 12/26/24 12:29 Surgical History no surgical history no surgical history Social History Smoking Status: Never smoker ROS ROS ED Constitutional Constitutional ED: Denies chills or fever(s) Eyes Eyes: Denies blurry vision or change in vision ENT ENT ED: Denies rhinorrhea or sore throat Cardiovascular Cardiovascular: Denies chest pain or palpitations Respiratory/Chest Respiratory/Chest: Denies cough or dyspnea Gastrointestinal Gastrointestinal: Reports nausea; Denies vomiting Genitourinary Genitourinary ED: Denies dysuria or hematuria Musculoskeletal Musculoskeletal: Denies back pain or neck pain Integumentary Denies abscess or rash Neurologic Neurologic: Denies headache(s) or weakness Allergic/Immunologic Allergic/Immunologic ED: Denies mouth swelling or urticaria EXAM Physical Exam Const Vital Signs: 12/26/24 12:30 Temperature 96.6 F L Temperature Source Temporal Pulse Rate 67 Respiratory Rate 18 Blood Pressure 129/94 H Blood Pressure Mean 105 Pulse Ox 99 Oxygen Delivery Method Room Air Positive well nourished and well developed Constitutional Narrative: BMI is 41.7. General Appearance ED: well developed and NAD HEENT Reports moist mucous membranes Neck full ROM and supple Neuro oriented x3, CN's II-XII intact bilaterally, moves all extremities, no focal motor deficits and no sensory deficits noted Sensorium / Orientation: alert Motor Exam: strength 5/5 throughout Psych mental status grossly normal Skin Skin Narrative: There is a 2 cm curvilinear laceration over the tip of the left index finger. There is mild gapping of the wound margins. There are no foreign bodies noted. There is mild bleeding noted. Sensation was intact to light touch in all digits. Capillary refill was less than 2 seconds in all digits. Strength is 5/5 in flexion and extension of the MP, PIP, and DIP joints. MDM MDM MDM Narrative Medical decision making narrative: The wound was cleaned and irrigated with copious amounts of normal saline. The wound was anesthetized with 1% plain lidocaine via digital block. The wound was closed with 3 simple interrupted #4-0 nylon sutures under sterile technique. Patient tolerated the procedure well. Bacitracin dressing was applied. Patient was instructed to keep the clean and dry. Patient was instructed to follow-up with a primary care physician in 5 days for wound recheck and suture analysis. Patient understood and was agreeable with the plan. All questions were answered. Discharge Plan Triage Chief Complaint: Laceration ED Provider: Eric Cali Dx/Rx/DC Orders Clinical Impression: Laceration of left index finger, ADHD Instructions: ED Laceration Extremity Prescriptions: No Action paroxetine HCl 20 MG tablet 20 mg PO DAILY Patient Comments: take 1 tablet by mouth once daily naproxen 500 MG tablet 500 mg PO BID PRN PRN (Reason: Pain Score 4-10/10) Qty: 20 0RF naproxen [Naprosyn] 500 mg tablet 500 mg PO BID PRN (Reason: pain) Qty: 20 0RF ondansetron 4 mg tablet,disintegrating 4 mg PO Q8H PRN (Reason: nausea and vomiting) Qty: 10 0RF ibuprofen 600 mg tablet 600 mg PO Q6H PRN PRN (Reason: pain) Qty: 20 0RF penicillin V potassium 250 mg tablet 500 mg PO 4X/DAY Qty: 40 0RF Primary Care Provider: Care Physician,No Primary Referrals: Roselyn Calloway MD [Med Staff - Administrative Nursing Supervisor, Internal Medicine] - 5 Days for suture removal Care Physician,No Primary [Primary Care Provider, Medical] Print Language: Bur[place]ian Disposition Disposition: Home, Self Care
[2024-12-26] MEDS: Lidocaine 1% (20 ml mdv) 20 ML Vial INFILT (13:32)
[2024-12-26 14:43] VITALS: BP 129/94; PULSE 67; RESP 18; TEMP 35.9; O2SAT 99
== END 2024-12-26 14:45 | disposition home or self-care (01) ==
PROVIDERS: Emergency Provider Emergency Medicine; Visit Provider Emergency Medicine
DX: S61.211A Laceration without foreign body of left index finger without damage to nail, initial encounter (principal); F90.9 Attention-deficit hyperactivity disorder, unspecified type; W26.0XXA Contact with knife, initial encounter
CPT/HCPCS: 12001; 90715; 99283